=== PATIENT | female | born 2000 | race Caucasian/White ===

== ENCOUNTER 2021-09-18 14:01 | Emergency (ER) | payer MEDICAID ==
[~2021-09-18] VITALS: Ht 170.2 cm; Wt 64.0 kg
[2021-09-18 14:04] VITALS: BP 160/80
[2021-09-18] MEDS ORDERED: ACETAMINOPHEN 325MG TABLET PO ONE (15:00)
[2021-09-18 17:01] LABS: B-HCG QUANTITATIVE 11 mIU/mL (<3)
== END 2021-09-18 18:58 | disposition left against medical advice (07) ==
LOC: ER 14:26
DX: Z53.21 Procedure and treatment not carried out due to patient leaving prior to being seen by health care provider (principal)
CPT/HCPCS: 36415; 84484; 84702; 93005